=== PATIENT | female | born 1965 | race Caucasian/White ===

== ENCOUNTER 2025-09-01 10:01 | Outpatient (AMB) | payer OTHER, SELFPAY ==
[2025-09-01 10:09] VITALS: BP 130/79; PULSE 79; RESP 16; O2SAT 98; BMI 22.0
--- NOTE | 2025-09-01 10:09 | A.OFFVIS_ITS ---
Vital Signs 09/01/25 10:09 Height 5 ft 5 in Weight 132 lb BMI 22.0 BP 130/79 Blood Pressure Location Rt brachial Position Sitting Respiration 16 Pulse 79 Pulse Source Pulse Oximeter Pulse Oximetry (%) 98 Oxygen Delivery Method Room Air Intake Visit Reasons: Discuss med change Technical Sales Support Manager Required: No Accompanied by: Friend Allergies Penicillins Allergy (Unknown, Verified 09/01/25 10:10) Unknown HPI Comments Details: Abbie is a 60-year-old female patient with a past medical history of chronic back pain, constipation, depression, anxiety, bulimia, hyperlipidemia, and insomnia who is presenting today to reestablish care here at [facility]. I was previously seeing her at [facility] for her headaches. Her headaches have historically been predominantly left-sided to the temporal areas associated with postauricular pain and hearing loss to the left ear. She has associated light and sound sensitivity as well as nausea. Headaches are throbbing and pulsating. She does have a history of TMJ which I have long day spected place her role in tension buildup especially to the left side of her head and face. We initially trialed Botox therapy however she had developed some weakness of the cervical muscles and often to stop treatment. We subsequently trialed occipital nerve block, auricular temporal nerve block, and trigger point injections which did provide some short-term benefit. More recently, we trialed Emgality. Unfortunately she has not had any profound improvement on Emgality. Her last round of occipital nerve blocks and trapezius trigger point injections were performed at [facility] on 08/22/2025 and she did have some short term temporary relief with these measures. She is still taking tizanidine and magnesium regularly however without any benefit. She ended up having a 2nd opinion at [facility] however she feels that this evaluation did not go well and she was referred to [facility] Th[facility]at. She had another Ear Nose and Throat evaluation and they felt that her symptoms were likely related to chronic clenching and TMJ and that Botox would be a reasonable therapy for her. She is still currently experiencing daily headaches with severe pain to the left side of her head especially to the temporal area and associated sensation of left ear fullness and decreased hearing on that side. She continues with light and sound sensitivity as well as nausea. Headaches are relatively consistent though she does have some improvement with tizanidine and magnesium as well as heat compresses. She is interested in starting back up on Botox therapy and would like to stop the Emgality injections for now as she does not see any profound benefit with these. When we performed Botox therapy initially, she only had 1 round of Botox therapy. Unfortunately, with 1 round of Botox therapy it is not at peak benefit and therefore we did not have a clear and fair trial of this. [facility] Medical History (Updated 09/01/25 @ 16:10 by Keyona Galeano CNP) Hypertriglyceridemia MDD (major depressive disorder) Insomnia YUNIEL (generalized anxiety disorder) Depression Low back pain Bruxism Migraine Family History (Updated 09/01/25 @ 10:11 by Ambrose Allred CMA) Father Diabetes mellitus Hypertension Review of Systems Const All systems reviewed & are unremarkable except as noted in HPI and below Physical Exam Vital Signs: Last Vital Signs Pulse 79 09/01/25 10:09 Resp 16 09/01/25 10:09 BP 130/79 09/01/25 10:09 Pulse Ox 98 09/01/25 10:09 Oxygen Delivery Method Room Air 09/01/25 10:09 BMI result Body Mass Index 22.0 Const General: cooperative, healthy appearing, comfortable and no acute distress Nutritional Appearance: well nourished Orientation/consciousness: patient oriented x3 Limitations: no limitations HEENT Head: Yes normal to inspection and Yes normocephalic Eyes General: appearance normal, both eyes and all related structures Visual Galvan: normal visual galvan by confrontation Alignment and Position: alignment normal Periorbital: periorbital findings normal Eyelids: Yes eyelids normal Conjunctivae: conjunctivae normal Sclerae: sclerae normal Neck Neck: Yes normal visual inspection and Yes full ROM General: Yes no CVA tenderness Back/Spine/Pelvis Back: no CVA tenderness Cervical Spine: normal cervical lordosis Thoracic/Lumbar Spine: thoracic and lumbar spine normal to inspection Neuro General: patient oriented x3 and deep tendon reflexes 2+ bilaterally Cranial nerves: Yes CN's II-XII intact bilaterally and Yes Facial sensation intact/muscles of mastication intact Cognition (Neuro): normal cognition Gait exam (Neuro): Normal gait present Motor exam (neuro): 5/5 motor strength present throughout and no tremor noted Sensory Exam: double simultaneous stimulation for sensation normal Romberg Test: Negative Pupils: Normal pupillary reactivity/response: bilateral Psych Appearance: grossly normal Mental Status: mental status grossly normal Speech and movement: Normal speech and movement present and Clear speech present Affect: normal affect Attitude: cooperative Thought process: Normal thought process present Thought content: Normal thought content present Insight: Good insight present (Psych) Judgement: Good judgement present (Psych) Assessment & Plan Assessment & Plan (1) Chronic migraine without aura without status migrainosus, not intractable: Code(s): G43.709 - Chronic migraine without aura, not intractable, without status migrainosus Category: Medical Plan: . (2) TMJ (temporomandibular joint disorder): Code(s): M26.609 - Unspecified temporomandibular joint disorder, unspecified side Category: Medical Plan: . Froilan Leiva is a 60-year-old female patient with a past medical history of chronic back pain, constipation, depression, anxiety, bulimia, hyperlipidemia, and insomnia who [facility]. Since our last visit at [facility], she has seen [facility] Neurology, ear nose and throat, and has stopped her Emgality. Ultimately, after her evaluations and discussion with other providers, she would like to retry Botox therapy. She did not really have a full fair trial on Botox therapy initially as she only did have 1 round. I will discontinue her Emgality and put forth another prior authorization to restart her Botox therapy. She did have some weakness of her cervical muscles and therefore I will likely eliminate Botox in these areas to avoid any further weakness of the neck muscles moving forward. -retrial of Botox therapy per migraine protocol -discontinue Emgality injections -referral to [facility] for TMJ specialist evaluation -return to the clinic once Botox therapy has been approved -continue tizanidine and magnesium as well as heat therapy Coding Level of Care Code Est Pt Level 4 (70725) Diagnoses Chronic migraine without aura without status migrainosus, not intractable G43.709 TMJ (temporomandibular joint disorder) M26.609
--- OUTSIDE RECORDS SUMMARY | 2025-09-01 11:39 | XMS_ITS | Data Portability ---
Author Organization [place] - [facility], Allergy Address [address] [address] Care Team Providers Care Batch Room Technician Name Role Phone RENITA MAGALLON Primary Care Provider CARSON BENITO Referring Provider [phone] CARSON BENITO Referring Provider FRAN OVIEDO Primary Care Provider [phone] Assessment Encounter Date Assessment Date Assessment LastModified by Organization Details LastModified Time 11/15/2024 11/15/2024 59 year old lynnette gonsalez presents for evaluation of her hearing. She reports muffled hearing in the left ear, ear blockage type sensation, tinnitus and ear pain for the past two months. TMs are intact and middle ear spaces appear well aerated. Audiometric testing reveals normal hearing through 3 kHz sloping to a moderate sensorineural hearing loss on the right with excellent speech recognition. On the left she has mild to moderate sensorineural hearing loss with excellent speech recognition. She has type A tympanograms bilaterally. Given the slight asymmetry as well as her unilateral tinnitus I have ordered MRI brain IAC to rule out retrocochlear pathology. Today we discussed the pathophysiology of tinnitus and the absence of consistently successful pharmacologic treatments for tinnitus. We discussed masking strategies to decrease awareness of the tinnitus, including using a white noise machine, music, or television. We discussed how exposure to loud noise can worsen tinnitus so I recommended hearing protection. We also discussed other ways to potentially help reduce awareness of tinnitus including avoidance of caffeine, salty meals and NSAIDs. Patient is extremely frustrated with her current symptoms. I discussed with the patient that I am not entirely sure what is causing her otalgia. TMJ is nontender bilaterally. Given the associated nausea and imbalance it is possible that this is an atypical migraine presentation. I did give her a handout on migraine. We discussed that there are other pain syndromes that can cause otalgia such as trigeminal neuralgia. I do think that she would benefit from referral to neurology if her symptoms persist. [email or web address] Not available 11/15/2024 14:24:46 08/30/2025 08/30/2025 59 year old lynnette gonsalez presents for repeat evaluation of her hearing. She reports muffled hearing in the left ear, ear blockage type sensation, tinnitus and ear pain for the past two months. TMs are intact and middle ear spaces appear well aerated. She did previously have an asymmetry with her hearing, we recommend an MRI which had done previously that was negative. She does have a recent chipped tooth and significant bruxism I do think the primary component of her concerns are significant TMJ muscle tension. I also think her tinnitus may be from a subtle noticing of asymmetry in higher frequency. She is struggling mightily with her tinnitus currently I do think she benefit from hearing amplification trial. - Tinnitus and TMJ recommendations below -Patient will talk with her primary doctor about TMJ specialist referral, she may even benefit from repeat Botox to TMJ area with her neurologist which she will see next week to talk about. - Return visit with me as needed [email or web address] Not available 08/30/2025 10:31:02 Plan of Treatment Reminders Order Date Submit Date Provider Last Modified By Organization Details Last Modified Time Details Appointments None recorded. Lab None recorded. Referral None recorded. Procedures None recorded. Surgeries None recorded. Imaging MRI, brain + internal auditory canal, w/wo contrast - MRI, BRAIN + INTERNAL AUDITORY CANAL, W/WO CONTRAST 2023 024 [facility] ([facility]), [address] [facility], [place], [address], 13:42:23 Medication Orders None recorded. Patient TargetsNo targets recorded. Patient InstructionsNo instructions recorded. Reason for Referral None Reported. Results Created Date Observation Date Name Description Value Unit Range Abnormal Flag Note LastModifiedBy Organization Detail LastModifiedTime 11/17/19 25 audio gram No observ ation record ed. BARCODE Not Available 2024 09:29:31 08/30/20 25 audio gram No observ ation record ed. BARCODE Not Available 2024 15:08:23 Result Notes None recorded. Problems Name Problem SNOMED Code Status Onset Date Resolution Date Notes Provider Name and Address Organization Details Recorded Time Sensorineur al hearing loss of bilateral ears 355816219 Active 2023 CECE NETTLES , AUD [address] [facility] [address], [place], [address], [facility] - [facility] 09:29:45 Tinnitus of left ear 6206481084429 Active 2023 Dane Ross, DO [address] [facility] [address], [place], [address], [facility] 10:30:26 Otalgia of left ear 8757381205 Active 2023 Dane Ross, DO [address] [facility] [address], [place], [address], [facility] 08:47:18 Temporomand ibular joint-pain- dysfunction syndrome 463939894 Active 2024 Dane Ross, DO [address] [facility] [address] [facility], [place], [address], [facility] 10:30:31 Problem Notes None recorded. Procedures Surgical History Date Name Laterality Status Provider Name and Address Organization Details Recorded Time 08/30/2025 Air & Speech Audio with Tymps - 83166, 26057 & 49424 completed CECE NETTLES, AUD [address] [facility],[address], [address], [facility] 08/30/2025 09:29:03 11/15/2024 Comp Audio with Tymps - 20339 & 34382 completed MONIQUE ZAVALA, AUD [address] [facility],[address], [address], [facility] 11/15/2024 13:11:01 Imaging Results None recorded. Procedure Notes None recorded. Medical Equipment None Reported. Allergies No known drug allergies Medications Name Sig Start Date Stop Date Status Note LastModified by Organization Details LastModified Time quetiapine 25 mg tablet TAKE 1 TABLET BY MOUTH EVERYDAY AT BEDTIME 08/30 completed Not Available Not Available Not Available clonidine HCl 0.1 mg tablet TAKE 1 TABLET BY MOUTH EVERYDAY AT BEDTIME 08/30 completed Not Available Not Available Not Available doxycycline hyclate 100 mg capsule TAKE 1 CAPSULE BY MOUTH TWICE A DAY FOR 10 DAYS 08/30 completed Not Available Not Available Not Available azithromyci n 250 mg tablet TAKE 2 TABLETS BY MOUTH TODAY, THEN TAKE 1 TABLET DAILY FOR 4 DAYS DIRECTED 08/27 completed Not Available Not Available Not Available tizanidine 4 mg tablet TAKE 1-2 TABLETS EVERY 8 HOURS NEEDED FOR HEADACHE/ TENSION active Not Available Not Available No t Available methylpheni date 5 mg tablet TAKE 1 TABLET BY MOUTH EVERY DAY 08/30 completed Not Available Not Available Not Available dextroamphe tamine-amph etamine 10 mg tablet TAKE 2 TABLETS BY MOUTH EVERY DAY 08/30 completed Not Available Not Available Not Available rizatriptan 10 mg tablet PLEASE SEE ATTACHED FOR DETAILED DIRECTION S 08/30 completed Not Available Not Available Not Available sumatriptan 50 mg tablet PLEASE SEE ATTACHED FOR DETAILED DIRECTION S 08/30 completed Not Available Not Available Not Available clonidine HCl 0.2 mg tablet TAKE 2 TABLETS BY MOUTH EVERY NIGHT AT BEDTIME 08/30 completed Not Available Not Available Not Available doxycycline monohydrate 100 mg capsule TAKE 1 CAPSULE BY MOUTH TWICE A DAY FOR 10 DAYS 08/27 completed Not Available Not Available Not Available prednisone 50 mg tablet TAKE 1 TABLET BY MOUTH EVERY DAY FOR 5 DAYS 08/30 completed Not Available Not Available Not Available gabapentin 300 mg capsule TAKE 1 CAPSULE BY MOUTH THREE TIMES A DAY WITH 100MG, FOR TOTAL DAILY DOSE OF 400MG 3 TIMES DAILY 08/30 completed Not Available Not Available Not Available codeine 10 mg-guaifene sin 100 mg/5 mL oral liquid TAKE 5 ML BY MOUTH EVERY 6 HOURS,X6 DAYS, NEEDED FOR COUGH AND CONGESTIO N 08/30 completed Not Available Not Available Not Available gabapentin 100 mg capsule TAKE 3 CAPSULE BY MOUTH 3 TIMES A DAY 08/30 completed Not Available Not Available Not Available albuterol sulfate HFA 90 mcg/actuati on aerosol inhaler 1 PUFFS INHALATIO N 4 TIMES A DAY, NEEDED FOR WHEEZING 08/30 completed Not Available Not Available Not Available dextroamphe tamine-amph etamine 5 mg tablet TAKE 1 TABLET BY MOUTH EVERY DAY 08/30 completed Not Available Not Available Not Available methylpheni date LA 20 mg biphasic 50-50 capsule,ext ended release TAKE 1 CAPSULE BY MOUTH EVERY DAY 08/30 completed Not Available Not Available Not Available methylpheni date LA 10 mg biphasic 50-50 capsule,ext ended release TAKE 1 CAPSULE BY MOUTH EVERY DAY 08/30 completed Not Available Not Available Not Available duloxetine 20 mg capsule,del ayed release TAKE 2 CAPSULES BY MOUTH EVERY DAY IN THE MORNING 08/30 completed Not Available Not Available Not Available duloxetine 30 mg capsule,del ayed release PLEASE SEE ATTACHED FOR DETAILED DIRECTION S 08/30 completed Not Available Not Available Not Available quetiapine 50 mg tablet TAKE 1.5 TABLET BY MOUTH EVERY NIGHT AT BEDTIME 08/30 completed Not Available Not Available Not Available Emgality Pen 120 mg/mL subcutaneou s pen injector 120 MG SUBCUTANE OUS INJECTION EVERY 30 DAYS,MAIN TENANCE DOSE active Not Available Not Available No t Available Vitals Date Recorded Body height Body mass index (BMI) Body weight Systolic And Diastolic Provider Name and Address Organization Details Last Updated DateTime 08/30/2025 165.1 cm 22 kg/m2 63837.19 g 120/82 mm[Hg] Gaby Suárez [place] - [facility] 08/30/2025 09:54:08 Social History None recorded. Functional Status None recorded. Mental Status None recorded. Family History Nothing Reported. Medical History No medical history recorded. Gynecological HistoryNo gynecological history recorded. Obstetrics History GPAL:G 0 P 0 0 0 0 Past Encounters Encounter ID Performer Location Encounter Start Date Encounter Closed Date Diagnosis/Indication Diagnosis SNOMED-CT Code Diagnosis ICD10 Code Diagnosis IMO Codes Diagnosis Note [id number] MERRILL MCCALL PA-C [facility] [address] [address] 11/15/2024 12:36:33 11/15/2024 13:49:24 Sensorineural hearing loss of bilateral ears 910477770 H90.3 Tinnitus of left ear 193 6372388 106 H93.12 Right Ear:Normal hearing through 3K Hz sloping to a moderate SNHL with excellent speech discrimina tion.Type A tympanogra m.Left Ear:Mild to moderate SNHL with excellent speech discrimina tion.Type A tympanogra m. Otalgia of left ear 1010 534481 H92.02 [id number] Dane Ross DO [facility] [address] [address] 08/30/2025 08:51:56 08/30/2025 10:28:54 Sensorineural hearing loss of bilateral ears 886026604 H90.3 Audiologic al evaluation results: Right ear: Normal sloping to moderately severe sensorineu ral hearing loss with excellent word recognitio n. Left ear: Normal sloping to severe sensorineu ral hearing loss with excellent word recognitio n. Tympanomet ry: Right Ear:Type A Left Ear:Type A Tinnitus of left ear 934 8796495 106 H93.12 Right Ear:Normal hearing through 3K Hz sloping to a moderate SNHL with excellent speech discrimina tion.Type A tympanogra m.Left Ear:Mild to moderate SNHL with excellent speech discrimina tion.Type A tympanogra m. We had an extensive discussion today on tinnitus and potential etiologies . I mentioned that there is no cure for tinnitus but there are ways to curtail symptoms. We discussed that the treatment paradigm includes continued hearing protection , lifestyle modificati ons including increasing hydration, avoidance of excessive salt or caffeine, improving sleep, and avoidance of potential patient specific triggers . I discussed that OTC medication s are unlikely to improve symptoms outside of placebo effect. Masking techniques with background noises can decrease perception of non-pulsat ile tinnitus. I also discussed the role of biofeedbac k, sound retraining , cognitive behavioral therapy as a potential treatment option to try to improve control over tinnitus. We also discussed the role of hearing amplificat ion, which have the means to provide background noise to curtail symptoms as well. The patient would like to pursue hearing amplificat ion at this time, I will provide medical clearance for this Otalgia of left ear 1010 883069 H92.02 Temporoman dibular ixuli-mjcx-oliguewtej n syndrome 460473298 M26.629 7913 The patient's periauricu lar pressure sensation is most likely consistent with intermitte nt inflammati on of the jaw joint or spasm of the surroundin g musculatur e. I recommende d the patient use light massage, warm compresses and anti-infla mmatories for symptomati c management . Stressed avoidance of chewy foods and gum/hard sweets. Use soft food diet as needed. Jaw Joint Program informatio n sheet was shared. If this treatment plan is ineffectiv e, recommend follow up with their dentist. Referral to physical therapist who specialize s in TMJ disorders could also be considered . Health Concerns Section Related Observation LastModified by Organization Detai ls LastModified Time None Recorded Concern Status LastModified by Organization Details LastModified Time None Recorded Advance Directives Directive None Recorded Payers Insurance Date Sequence Insurance Name Policy Number Policy Bruner Covered Member ID Bruner Member ID Guarantor Name 08/27/2025 1 [facility] [place] [id number] Abbie Clayton [id number] Abbie Clayton Notes Date Note Type Note Provider Name and Address Organization Details Recorded Time 11/15/2024 text/html ROS as noted in the HPI 59 year old female presents to the office reporting left ear muffled hearing, pain, plugged sensation and constant ringing. This all started at the end of August when she had a mild cold. The tinnitus is constant. She tried Flonase for one month with no improvement. Her PCP prescribed oral antibiotic with no improvement. She admits to some nausea and associated imbalance. DANE VORA MD [address] [place] [address], [phone], [facility] - [facility] 11/15/2024 17:28:49 08/30/2025 text/html ROS as noted in the HPI Interval history: Patient still has consistent left-sided nonpulsatile tinnitus. She has had multiple MRIs per her remember negative. She also endorses significant bruxism, recently broken front tooth, and use of mouthguard. She has had Botox for migraines but not specifically TMJ per her. She is also taking antimigraine medication currently. Previous visit: (Merrill) 59 year old female presents to the office reporting left ear muffled hearing, pain, plugged sensation and constant ringing. This all started at the end of August 2024 when she had a mild cold. The tinnitus is constant. She tried Flonase for one month with no improvement. Her PCP prescribed oral antibiotic with no improvement. She admits to some nausea and associated imbalance. Audiometric testing reveals normal hearing through 3 kHz sloping to a moderate sensorineural hearing loss on the right with excellent speech recognition. On the left she has mild to moderate sensorineural hearing loss with excellent speech recognition. She has type A tympanograms bilaterally. Given the slight asymmetry as well as her unilateral tinnitus I have ordered MRI brain IAC to rule out retrocochlear pathology. There was some concern at last visit this could be a form of atypical migraine. Dane Ross, DO [address] [facility] [address], [place], [address], [facility] - [facility] 08/30/2025 10:31:11 OBGyn Episode No OBEpisode recorded.
--- OUTSIDE RECORDS SUMMARY | 2025-09-01 11:39 | XMS_ITS | Clinical Summary ---
Author Organization [facility] Address [address] [place] [address] Care Team Providers Care Knock Out Hand Name Role Phone Ashleigh Fajardo MD Primary Care Provider [phone] Allergies Active Allergy Reactions Criticality Noted Date Comments Penicillins Hives 07/06/2025 Medications fluvoxaMINE (LUVOX) 50 mg tablet 5 Active Emgality Pen 120 mg/mL pen injector SMARTSI Milligram(s) SUB-Q Once a Month 5 Active QUEtiapine (SEROquel) 50 mg tablet 50 mg. 5 Active SUMAtriptan (IMITREX) 50 mg tablet PLEASE SEE ATTACHED FOR DETAILED DIRECTIONS 5 Active methylphenidate LA (RITALIN LA) 20 mg 24 hr capsule SMARTSI Capsule(s) By Mouth Daily 5 Active gabapentin (NEURONTIN) 400 mg capsule Take 400 mg by mouth 3 times a day. Active Active Problems Problem Noted Date Diagnosed Date Chronic daily headache 07/06/2025 Hearing loss associated with syndrome of both ea rs 07/06/2025 Migraine without aura and wi thout status migrainosus, not intractable 07/06/2025 Occipital neuralgia of left side 07/06/2025 Anxiety Disorder NOS 11/12/2012 Encounters Date Type Department Care Team Description 07/24/2025 Results Follow-Up [facility] [address] [place] [address] Makayla York NP 07/21/2025 Orders Only External Imaging [address] [place] [address] Radiology, External 07/06/2025 11:00 AM EDT Office Visit [facility] [address] [place] [address] Makayla York NP Chronic daily headache (Primary Dx); Hearing loss associated with syndrome of both ears; Migraine without aura and without status migrainosus, not intractable; Occipital neuralgia of left side from Last 3 Months Social History Tobacco Use Types Packs/Day Years Used Date Smoking Tobacco: Never Smokeless Tobacco: Never Tobacco Cessation:Counseling Given: Not Answered Alcohol Use Standard Drinks/Week Comments Never 0 (1 standard drink = 0.6 oz pur e alcohol) Comments Unknown Sex and Gender Information Value Date Recorded Sex Assigned at Female 04/24/2025 10:02 AM EDT Legal Sex Female 8:38 AM EDT Gender Identity Female 06/29/2025 9:21 AM EDT Sexual Orientation Straight 06/29/2025 9: 21 AM EDT Last Filed Vital Signs Vital Sign Reading Time Taken Comments Blood Pressure 111/70 07/06/2025 10:37 AM EDT Pulse 77 07/06/2025 10:37 AM EDT Temperature 36.6 C (97.8 F) 07/06/2025 10:25 AM EDT Respiratory Rate 18 07/06/2025 10:25 AM EDT Oxygen Saturation 100% 07/06/2025 10:25 AM EDT Inhaled Oxygen Concentration - - Weight 62.1 kg (137 lb) 07/06/2025 10:25 AM EDT Height 165.1 cm (5' 5 ) 07/06/2025 10:25 AM EDT Body Mass Index 22.8 07/06/2025 10:25 AM EDT Plan of Treatment Health Maintenance Due Date Last Done Comments Cologuard 1965 Colon Cancer Screening 1965 Colonoscopy 1965 FOBT / Fit Test 1965 HIV Screening 1965 HPV and Pap Smear 1965 Hepatitis C Screening 1965 Sigmoidoscopy 1965 Cervical Cancer Screening 06/16/2014 Pap Smear 06/16/2014 06/16/2011, 08/30/2009, 08/25/2008 Pneumococcal Vaccine: 50+ Years (1 of 1 - PCV) 2015 Zoster Vaccines (1 of 2) 2015 Mammogram 09/06/2015 09/06/2013 Alcohol/Substance Use Screening 11/16/2024 Depression Screening and Follow-Up 11/16/2024 Social Drivers of Health Annual Screening 11/16/2024 COVID-19 Vaccine (4 - 2024-2 6 season) 2025 09/29/2021, 03/27/2021, 02/26/2021 Influenza Vaccine (#1) 2025 , 09/10/2018 DTaP,Tdap,and Td Vaccines (2 - Td or Tdap) 10/13/2028 10/13/2018 RSV Vaccine (60+ years old a nd patients) (1 - 1-dose 75+ series) 02/07/2040 Hepatitis B Vaccines Aged Out No long er eligible based on patient's age to complete this topic Procedures * Due to [employer] law, this organization might not be sharing negative HIV tests. Procedure Name Priority Date/Time Associated Diagnosis Comments MRI ANGIOGRAM HEAD WO CONTRAST Routine 07/21/2025 2:50 PM EDT Chronic daily headache from Last 3 Months Results * Due to [employer] law, this organization might not be sharing negative HIV tests. * MRI angiogram head without contrast (07/21/2025 2:50 PM EDT) Anatomical Region Laterality Modality Head and Neck Magnetic Resonan ce 07/21/2025 2:30 PM EDT Narrative 07/21/2025 9:28 PM EDT [facility] at [facility], [facility] Accession Number: [id number] Patient Name: Abbie Clayton Date of : 1965 Date of Exam: 07-21-2025 Referring Physician: Makayla York [address] [address] Exam: MR Brain Angio (C-) CPT 99141 Room Description: Wing GE Mob 1.5 MRA of the brain HISTORY: Headaches and left earache. COMPARISON: MRI of the brain, 11/22/2024. FINDINGS: Axial noncontrast 3-D [id number]-md-cxkywn MR angiogram of the brain was performed with 3-D MIP reformatted images. The ICAs below the skull base are tortuous. The intracranial ICAs are patent and normal in caliber. The anterior cerebral arteries are patent and normal in caliber with a small patent anterior communicating artery noted. Bilateral M1 and M2 branches are patent and normal in caliber. The vertebral arteries, basilar artery, superior cerebellar arteries, and posterior cerebral arteries are patent and normal in caliber. Tiny bilateral posterior communicating arteries are seen. There is no vessel occlusion, significant stenosis, or evidence of aneurysm. IMPRESSION: Normal MRA of the brain. Electronically Signed By: Ade Gusman MD Procedure Note Provider, Ligia - 07/21/2025 [facility] Accession Number: [id number] Patient Name: Abbie Clayton Date of : 1965 Date of Exam: 07-21-2025 Referring Physician: Wyatt Dickey [place] [address] Exam: MR Brain Angio (C-) CPT 43756 Room Description: [place] TapFit Mob 1.5 MRA of the brain HISTORY: Headaches and left earache. COMPARISON: MRI of the brain, 11/22/2024. FINDINGS: Axial noncontrast 3-D qfxi-zn-wadvcf MR angiogram of the brain was performed with 3-D MIP reformatted images. The ICAs below the skull base are tortuous. The intracranial ICAs are patent and normal in caliber. The anterior cerebral arteries are patent and normal in caliber with a small patent anterior communicating artery noted. Bilateral M1 and M2 branches are patent and normal in caliber. The vertebral arteries, basilar artery, superior cerebellar arteries, and posterior cerebral arteries are patent and normal in caliber. Tiny bilateral posterior communicating arteries are seen. There is no vessel occlusion, significant stenosis, or evidence of aneurysm. IMPRESSION: Normal MRA of the brain. Electronically Signed By: Ade Gusman MD us Elisedavi Wyatt Dickey PAY AGENT IMG MRI PROCEDURES Shannon l Result from Last [address] [place] [facility] [place] [id number] [facility] Care Teams Knock Out Hand Relationship Specialty Start Date End Date Ashleigh Fajardo MD [address] [place] [id number] PCP - General Internal Medicine 04/24/25
--- OUTSIDE RECORDS SUMMARY | 2025-09-01 11:39 | XMS_ITS | Continuity of Care Document ---
Author Organization [place] - [facility], [facility] Address [address] [place] [address] Care Team Providers Care Greenhouse Specialist Name Role Phone RENITA MAGALLON Primary Care Provider CARSON BENITO Referring Provider CARSON BENITO Referring Provider [phone] FARN OVIEDO Primary Care Provider [phone] Assessment Encounter Date Assessment Date Assessment LastModified by Organization Details LastModified Time 08/30/2025 08/30/2025 59 year old lynnette gonsalez [...] Details Last Modified Time Details Appointments None record ed. Lab None record ed. Referral None record ed. Procedures None record ed. Surgeries None record ed. Imaging None record ed. Medication Orders None record ed. Patient TargetsNo targets recorded. Patient InstructionsNo instructions recorded. Reason for Referral None Reported. Results Created Date Observation Date Name Description Value Unit Range Abnormal Flag Note LastModifiedBy Organization Detail LastModifiedTime 08/30/20 25 audio gram No observ ation record ed. BARCODE Not Available 2024 15:08:23 Result Notes None recorded. Problems Name Problem SNOMED Code Status Onset Date Resolution Date Notes Provider Name and Address Organization Details Recorded Time Sensorineur al hearing loss of bilateral ears 961368595 Active 2023 CECE NETTLES , AUD [address] [facility] [address] [place], [address], [facility] - [facility] 09:29:45 Tinnitus of left ear 6762442476742 Active 2023 Dane Ross, DO [address] [facility] [place],[address] [facility], [place], [address], [facility] 10:30:26 Otalgia of left ear 7231245806 Active 2023 Dane Ross, DO [address] [facility] [address] [facility], [place], [address], [facility] 08:47:18 Temporomand ibular joint-pain- dysfunction syndrome 482907464 Active 2024 Dane Ross DO [address] [facility] [place],[address] [facility], [place], [address], [facility] 10:30:31 Problem Notes None recorded. Procedures Surgical History Date Name Laterality Status Provider Name and Address Organization Details Recorded Time 08/30/2025 Air & Speech Audio with Tymps - 96584, 74571 & 20562 completed CECE NETTLES, AUD [address], [address], [facility] - [facility] 08/30/2025 09:29:03 11/15/2024 Comp Audio with Tymps - 82875 & 96667 completed MONIQUE ZAVALA, AUD [address] [facility] [place] [address], [place], [address], [facility] 11/15/2024 13:11:01 Imaging Results None recorded. [...] Updated DateTime 08/30/2025 165.1 cm 22 kg/m2 97323.19 g 120/82 mm[Hg] Gaby Suárez [place] - [facility] 08/30/2025 09:54:08 Social History None recorded. Functional Status None recorded. Mental Status None recorded. Family History Nothing Reported. Medical History No medical history recorded. Gynecological HistoryNo gynecological history recorded. Obstetrics History GPAL:G 0 P 0 0 0 0 Past Encounters Encounter ID Performer Location Encounter Start Date Encounter Closed Date Diagnosis/Indication Diagnosis SNOMED-CT Code Diagnosis ICD10 Code Diagnosis IMO Codes Diagnosis Note [id number] Dane Ross DO [facility] [address] [place] [address] 08/30/2025 08:51:56 08/30/2025 10:28:54 Sensorineural hearing loss of bilateral ears 476486314 H90.3 Audiologic al evaluation results: Right ear: Normal sloping to moderately severe sensorineu ral hearing loss with excellent word recognitio n. Left ear: Normal sloping to severe sensorineu ral hearing loss with excellent word recognitio n. Tympanomet ry: Right Ear:Type A Left Ear:Type A Tinnitus of left ear 958 0434233 106 H93.12 Right Ear:Normal hearing through 3K [...] for this Otalgia of left ear 1010 661939 H92.02 Temporoman dibular kdyrj-frwi-oanqfoeund n syndrome 062821751 M26.749 7912 The patient's periauricu lar pressure sensation is [...] by Organization Details LastModified Time None Recorded Payers Encounter Date Sequence Insurance Name Policy Number Policy Bruner Covered Member ID Bruner Member ID Guarantor Name 08/30/2025 1 [employer] [place] [place] [id number] Abbie Vargas Forrest [id number] Abbie Vargas Forrest Notes Date Note Type Note Provider Name and Address Organization Details Recorded Time 08/30/2025 text/html ROS as noted in the HPI Interval history: Patient still has consistent left-sided nonpulsatile tinnitus. She has had multiple MRIs per her remember negative. She also endorses significant bruxism, recently broken front tooth, and use of mouthguard. She has had Botox for migraines but not specifically TMJ per her. She is also taking antimigraine medication currently. Previous visit: (Bailee) 59 year old female presents to the [...] a form of atypical migraine. Dane Ross, [address] [facility] [place] [address], [place], [address], [facility] - [facility] 08/30/2025 10:31:11 OBGyn Episode No OBEpisode recorded.
== END 2025-09-01 10:50 | disposition home or self-care (01) ==
LOC: HO.HSM 10:02
PROVIDERS: PCP Internal Medicine; Visit Provider Nurse Practitioner
DX: G43.709 Chronic migraine without aura, not intractable, without status migrainosus (principal); M26.609 Unspecified temporomandibular joint disorder, unspecified side
CPT/HCPCS: 99214

== ENCOUNTER 2025-09-29 13:56 | Outpatient (REF) | payer OTHER, SELFPAY ==
--- NOTE | ~2025-09-29 | XR_ITS ---
EXAMINATION: XR CERVICAL SPINE CLINICAL INFORMATION: M54.2 - Cervicalgia COMPARISON: None available. TECHNIQUE: AP lateral and atlantoodontoid views and swimmer's projection. FINDINGS: Craniocervical junction is intact. Marginal osteophyte formation anteriorly and posteriorly with endplate sclerosis and decreased intervertebral disc height at C4-5. Grade 1 retrolisthesis, C4-5. No lytic or blastic lesions. XR/XR cervical spine 3V IMPRESSION: Spondylosis and grade 1 retrolisthesis C4-5. Electronically signed by: Jaren Snow MD 09/29/2025 03:15 PM [facility]
== END 2025-09-29 13:57 | disposition home or self-care (01) ==
LOC: HO.XRAY 13:56
PROVIDERS: PCP Internal Medicine; Visit Provider Nurse Practitioner
DX: G43.709 Chronic migraine without aura, not intractable, without status migrainosus (principal); M26.602 Left temporomandibular joint disorder, unspecified; M54.2 Cervicalgia; F45.8 Other somatoform disorders
CPT/HCPCS: 20553; 64405; 72040; J0665

== ENCOUNTER 2025-09-29 13:56 | Outpatient (AMB) | payer OTHER, SELFPAY ==
--- NOTE | 2025-09-29 13:56 | MHC.OFFVIS ---
Vital Signs 09/29/25 14:15 Height 5 ft 5 in Weight 134 lb BMI 22.3 BP 124/84 Blood Pressure Location Lt brachial Position Sitting Respiration 16 Pulse 80 Pulse Source Pulse Oximeter Pulse Oximetry (%) 98 Oxygen Delivery Method Room Air Intake Visit Reasons: Nerve block Tool Rental Technician Required: No Allergies Penicillins Allergy (Unknown, Verified 09/29/25 14:16) Unknown HPI Comments Details: Abbie is a 60-year-old female patient with a past medical history of chronic back pain, constipation, depression, anxiety, bulimia, hyperlipidemia, and insomnia who is presenting today for nerve block and trigger points. We are currently in the process of obtaining a prior authorization for Botox therapy though due to some technical issues with the process, there has been a slight hold up and therefore she requested to come in for other means of pain management. To review: Her headaches have historically been predominantly left-sided to the temporal areas associated with postauricular pain and hearing loss to the left ear. She has associated light and sound sensitivity as well as nausea. Headaches are throbbing and pulsating. She does have a history of TMJ which I have long suspected place her role in tension buildup especially to the left side of her head and face. We initially trialed Botox therapy however she had developed some weakness of the cervical muscles and opted to stop treatment. We subsequently trailed occipital nerve blocks, left auriculotemporal nerve block, and trigger point injections which did provide some short-term benefit. We also trialed Emgality. Unfortunately she has not had any profound improvement on Emgality. She is still currently experiencing daily migraine type headaches with severe pain to the left side of her head especially to the temporal area and associated sensation of left ear fullness and decreased hearing on that side. She continues with light and sound sensitivity as well as nausea. Headaches are relatively consistent though she does have some improvement with tizanidine and magnesium as well as heat compresses. Today she continues with the same symptoms. She asks about other means of therapy while we await the Botox PA. We discussed transitioning from tizanidine to cyclobenzaprine and we did complete the occipital nerve blocks, left auricular temporal nerve block, and left temporal trigger point injections today as well. [facility] Medical History (Updated 09/29/25 @ 14:37 by Keyona Galeano CNP) Hypertriglyceridemia MDD (major depressive disorder) Insomnia YUNIEL (generalized anxiety disorder) Depression Low back pain Bruxism Migraine Family History (Updated 09/01/25 @ 10:11 by Ambrose Allred CMA) Father Diabetes mellitus Hypertension Review of Systems Const All systems reviewed & are unremarkable except as noted in HPI and below Physical Exam Vital Signs: Last Vital Signs Pulse 80 09/29/25 14:15 Resp 16 09/29/25 14:15 BP 124/84 09/29/25 14:15 Pulse Ox 98 09/29/25 14:15 Oxygen Delivery Method Room Air 09/29/25 14:15 BMI result Body Mass Index 22.3 Const General: cooperative, healthy appearing, comfortable and no acute distress Nutritional Appearance: well nourished Orientation/consciousness: patient oriented x3 Limitations: no limitations HEENT Head: Yes normal to inspection and Yes normocephalic Eyes General: appearance normal, both eyes and all related structures Visual Ferrell: normal visual ferrell by confrontation Alignment and Position: alignment normal Periorbital: periorbital findings normal Eyelids: Yes eyelids normal Conjunctivae: conjunctivae normal Sclerae: sclerae normal Neck Neck: Yes normal visual inspection and Yes full ROM General: Yes no CVA tenderness Back/Spine/Pelvis Back: no CVA tenderness Cervical Spine: normal cervical lordosis Thoracic/Lumbar Spine: thoracic and lumbar spine normal to inspection Neuro General: patient oriented x3 and deep tendon reflexes 2+ bilaterally Cranial nerves: Yes CN's II-XII intact bilaterally and Yes Facial sensation intact/muscles of mastication intact Cognition (Neuro): normal cognition Gait exam (Neuro): Normal gait present Motor exam (neuro): 5/5 motor strength present throughout and no tremor noted Sensory Exam: double simultaneous stimulation for sensation normal Romberg Test: Negative Pupils: Normal pupillary reactivity/response: bilateral Psych Appearance: grossly normal Mental Status: mental status grossly normal Speech and movement: Normal speech and movement present and Clear speech present Affect: normal affect Attitude: cooperative Thought process: Normal thought process present Thought content: Normal thought content present Insight: Good insight present (Psych) Judgement: Good judgement present (Psych) Office Procedures Nerve Block Details: Bilateral Greater Occipital Nerve block procedure: Laterally: Bilateral Indications: Occipital neuralgia Current allergies and current list of medications were reviewed prior to procedure, verbal consent was obtained, procedure was explained in detail to the patient prior to starting. Time-out was performed prior to procedure. Following universal hygiene protocols, patient's left occipital area was located by drawing a line between the external occipital protuberance and the mastoid process. The greater occipital nerve was located approximately 2/3 along this service line coordinator to the occiput, and corresponded with the point of maximum tenderness. Alcohol was applied topically to the skin. A 27 gauge needle (aspirating during insertion) was inserted at a 45 degree angle until just above the periosteum. The providers selected agent (s)/medications (as documented in this note) were injected on the left side (directing needle to center, left and right of painful focus any fanning technique). Pressure with gauze pad was held briefly upon the site of puncture to minimize bleeding and to further spread anesthetic subcutaneously. The procedure was repeated on the right side. The patient was monitored for 15 minutes after the procedure and no complications were observed. Post procedure care was reviewed with the patient including application of ice intermittently to the injection sites over the course of the day to reduce inflammation. Auriculotemporal Nerve Block Procedure: Laterally:Left Indications:Headache/bruxism/TMJ dysfunction Allergies to medications reviewed with patient prior to procedure, consent was obtained, procedure was explained in detail to the patient prior to starting, time-out was performed prior to the procedure. Following universal hygiene protocol, patient's left auricular temporal area was located by drawing a line between the corner of the eye to the tragus. The site was located 1 fingerbreadth toward the midline. This corresponded to the point of maximum tenderness. Alcohol was applied to this area topically to the skin. A 30 gauge 0.5 inch needle was injected into the skin (aspirating during insertion). This was inserted at a 90 degree angle. The medication chosen by the provider and as documented in this office note was injected to this site. Pressure with gauze was applied to the site briefly after the puncture to minimize bleeding and to further spread the anesthetic subcutaneously. Patient tolerated the procedure well and was monitored postprocedure for 15 minutes. No complications occurred during or after the procedure. The patient was discharged home with instructions to apply ice to the injection site as needed throughout the remainder of the day. CPT: 50755-Qgcagqv Occipital 49037 - Auriculotemporal Left Procedure code (CPT) selection complete Therapeutic Injection Therapeutic Injection Details: Trigger point injection procedure: Laterally:Left Indications: Chronic headaches, myofascial pain Following universal hygiene protocol, after explaining the risks and benefits as well as hazards of the procedure to the patient, consent was signed and placed in the chart. Time-out prior to starting the procedure was performed. The areas over the left temporalis muscle were cleansed with alcohol. 4 Sites in the left temporalis muscle injected with a 27 gauge 1.5 in needle with myofascial spasm. Patient tolerated the procedure well, localized bleeding was controlled. Patient monitored in the clinic for 15 minutes for complications. Patient was discharged home with instructions to apply ice to the back of their head as needed. 98268-Ecebdpy Point Injection 3 or more All charges added?: Procedure code (CPT) selection complete Office Meds bupivacaine (PF) 0.5 % (5 mg/mL) injection solution Performing Provider: Keyoan Galeano CNP Performing Location: [facility] Administered by: Keyona Galeano CNP on 09/30/25 06:50 Dose Route Admin Location Dispensed Lot Number Expiration Date [facility] Contour Path Tape Mill Operator 7 mL Infiltration 10 mL 74618-144-07 [employer]ARMACE Total Dispensed Waste 10 mL 30 % bupivacaine (PF) 0.5 % (5 mg/mL) injection solution Performing Provider: Keyona Galeano CNP Performing Location: [facility] Administered by: Keyona Galeano CNP on 09/30/25 06:52 Dose Route Admin Location Dispensed Lot Number Expiration Date [facility] Contour Path Tape Mill Operator 1 mL Infiltration 10 mL [id number] [employer]ELLIA PHARMACE Total Dispensed Waste 10 mL 90 % Assessment & Plan Assessment & Plan (1) Neck pain: Code(s): M54.2 - Cervicalgia Category: Medical (2) Bruxism: Code(s): F45.8 - Other somatoform disorders Category: Medical (3) Chronic migraine without aura without status migrainosus, not intractable: Code(s): G43.709 - Chronic migraine without aura, not intractable, without status migrainosus Category: Medical (4) TMJ (temporomandibular joint disorder): Code(s): M26.609 - Unspecified temporomandibular joint disorder, unspecified side Category: Medical Plan Abbie is a 60-year-old female patient with a past medical history of chronic back pain, constipation, depression, anxiety, bulimia, hyperlipidemia, and insomnia who is presenting today for nerve block and trigger points. We are still awaiting Botox prior authorization however to our knowledge, her old prior authorization through [facility] expires on Thursday10/01/2025 and we will need to await prior authorization process here until this is . Once again to review, headaches are daily primarily to left side accompanied by light and sound sensitivity as well as nausea and are very severe. She did 1 round of Botox therapy but unfortunately developed some weakness in the cervical paraspinal muscles and opted to stop. One round of Botox therapy is not adequate for a true trial. She is open to another trial of Botox therapy today though we discussed omission of the cervical paraspinal injections to avoid this complication moving forward. Because she is complaining of neck pain, she requests imaging of her cervical spine. She has never had any imaging in the past. -Occipital nerve block injections (bilateral), and left sided auriculotemporal nerve block as well as left temporal trigger point injectios -Botox PA -Cyclobenzaprine 5mg nightly -c-spine x-ray Orders: Orders XR cervical spine 3V 09/29/25 M54.2 - Cervicalgia AMB Nerve Block 09/29/25 F45.8 - Other somatoform disorders, G43.709 - Chronic migraine without aura, not intractable, without status migrainosus, M26.609 - Unspecified temporomandibular joint disorder, unspecified side, M54.2 - Cervicalgia AMB Trigger Point Injection 09/29/25 F45.8 - Other somatoform disorders, G43.709 - Chronic migraine without aura, not intractable, without status migrainosus, M26.609 - Unspecified temporomandibular joint disorder, unspecified side, M54.2 - Cervicalgia Medications: New cyclobenzaprine Do not take with tizanidine 5 mg PO BEDTIME PRN 30 tabs 5RF muscle spasm Coding Level of Care Code Est Pt Level 4 (66736) Diagnoses Neck pain M54.2 Bruxism F45.8 Chronic migraine without aura without status migrainosus, not intractable G43.709 TMJ (temporomandibular joint disorder) M26.609 CPT Codes Nerve Block - CPT: 58762-Rwuyzif Occipital ([id number]) Therapeutic Injection - Ther Injection 2: 25267-Qvqdoir Point Injection 3 or more ([id number])
[2025-09-29 14:15] VITALS: BP 124/84; PULSE 80; RESP 16; O2SAT 98; BMI 22.3
--- OUTSIDE RECORDS SUMMARY | 2025-09-29 20:33 | XMS_ITS | Clinical Summary ---
Author Organization [facility] Address [address] [place] [address] Care Team Providers Care Policy Writer Sales Name Role Phone Ashleigh Fajardo MD Primary Care Provider [phone] Allergies Active Allergy Reactions Criticality Noted Date [...] Department Care Team Description 07/24/2025 Results Follow-Up [facility] [address] [place] [address] Makayla York NP 07/21/2025 Orders Only External Imaging [address] [place] [address] Radiology, External 07/06/2025 11:00 AM EDT Office Visit [facility] [address] [place] [address] Makayla York NP Chronic daily headache (Primary [...] complete this topic Procedures * Due to [place] Ad[employer] law, this organization might not be sharing negative HIV tests. Procedure Name Priority Date/Time Associated Diagnosis Comments MRI ANGIOGRAM HEAD WO CONTRAST Routine 07/21/2025 2:50 PM EDT Chronic daily headache from Last 3 Months Results * Due to [place] [employer] law, this organization might not be sharing negative HIV tests. * MRI angiogram head without contrast (07/21/2025 2:50 PM EDT) Anatomical Region Laterality Modality Head and Neck Magnetic Resonan ce 07/21/2025 2:30 PM EDT Narrative 07/21/2025 9:28 PM EDT Strong MRI at [facility], [facility] Accession Number: [id number] Patient Name: Abbie Clayton Date of : 1965 Date of Exam: 07-21-2025 Referring Physician: Makayla York [address] [address] Exam: MR Brain Angio (C-) CPT 27326 Room Description: Wing GE Mob 1.5 MRA of the brain HISTORY: Headaches and left earache. COMPARISON: MRI of the brain, 11/22/2024. FINDINGS: Axial noncontrast 3-D jvjf-ta-jvauut MR angiogram of the brain was performed [...] - 07/21/2025 [facility] Accession Number: [id number] Patient Name: Abbie Clayton Date of : 1965 Date of Exam: 07-21-2025 Referring Physician: Wyatt Dickey [place] [address] Exam: MR Brain Angio (C-) CPT 62857 Room Description: Rexford Biscotti Mob 1.5 MRA of the brain HISTORY: Headaches and left earache. COMPARISON: MRI of the brain, 11/22/2024. FINDINGS: Axial noncontrast 3-D tcds-fy-vxprye MR angiogram of the brain was performed [...] Ade Gusman MD us Elisedavi Wyatt Dickey [facility] IMG MRI PROCEDURES Shannon l Result from Last [address] [id number] [facility] Care Teams Policy Writer Sales Relationship Specialty Start Date End Date Ashleigh Fajardo MD [address] [place] [phone] PCP - General Internal Medicine 04/24/25
--- OUTSIDE RECORDS SUMMARY | 2025-09-29 20:33 | XMS_ITS | Data Portability ---
Author Organization [place] - [facility], Allergy Address [address] [address] Care Team Providers Care Data Entry Supervisor Name Role Phone RENITA MAGALLON Primary Care Provider CARSON BENITO Referring Provider [phone] CARSON BENITO Referring Provider FRAN OVIEDO Primary Care Provider Assessment Encounter Date Assessment Date Assessment LastModified [...] INTERNAL AUDITORY CANAL, W/WO CONTRAST 2023 024 [facility] ([facility]), [address] [facility], [place], [address], 13:42:23 Medication Orders None recorded. Patient TargetsNo [...] Sensorineur al hearing loss of bilateral ears [id number] Active 2023 CECE NETTLES , AUD 100 [facility] [place], [facility] [place], [address], [facility] - [facility] 09:29:45 Tinnitus of left ear [id number] Active 2023 Dane Ross, DO 100 [facility] [place], [facility] [place], [address], [facility] 10:30:26 Otalgia of left ear 8034416335 Active 2023 Dane Ross, DO 100 [facility] [place],[address], [facility] [place], [address], [facility] 08:47:18 Temporomand ibular joint-pain- dysfunction syndrome 355124627 Active 2024 Dane Ross, DO 100 [facility] [place],[address] [facility], [facility] [place], [address], [facility] 10:30:31 Problem Notes None recorded. Procedures Surgical History Date Name Laterality Status Provider Name and Address Organization Details Recorded Time 08/30/2025 Air & Speech Audio with Tymps - 59656, 37491 & 20831 completed CECE NETTLES, AUD 100 [facility],[address], [address], [facility] 08/30/2025 09:29:03 11/15/2024 Comp Audio with Tymps - 90467 & 01616 completed MONIQUE ZAVALA, AUD 100 [facility],[address], [address], [facility] 11/15/2024 13:11:01 Imaging Results None recorded. [...] Updated DateTime 08/30/2025 165.1 cm 22 kg/m2 41478.19 g 120/82 mm[Hg] Gaby Suárez [place] - [facility] 08/30/2025 09:54:08 Social History None recorded. Functional Status None recorded. Mental Status None recorded. Family History Nothing Reported. Medical History No medical history recorded. Gynecological HistoryNo gynecological history recorded. Obstetrics History GPAL:G 0 P 0 0 0 0 Past Encounters Encounter ID Performer Location Encounter Start Date Encounter Closed Date Diagnosis/Indication Diagnosis SNOMED-CT Code Diagnosis ICD10 Code Diagnosis IMO Codes Diagnosis Note [id number] MERRILL MCCALL PA-C [facility] [address] [address] 11/15/2024 12:36:33 11/15/2024 13:49:24 Sensorineural hearing loss of bilateral ears 720184804 H90.3 Tinnitus of left ear 074 3263164 106 H93.12 Right Ear:Normal hearing through 3K Hz sloping to a moderate SNHL with excellent speech discrimina tion.Type A tympanogra m.Left Ear:Mild to moderate SNHL with excellent speech discrimina tion.Type A tympanogra m. Otalgia of left ear 1010 079871 H92.02 [id number] Dane Ross DO [facility] [address] [address] 08/30/2025 08:51:56 08/30/2025 10:28:54 Sensorineural hearing loss of bilateral ears 909659162 H90.3 Audiologic al evaluation results: Right ear: Normal sloping to moderately severe sensorineu ral hearing loss with excellent word recognitio n. Left ear: Normal sloping to severe sensorineu ral hearing loss with excellent word recognitio n. Tympanomet ry: Right Ear:Type A Left Ear:Type A Tinnitus of left ear 362 4269104 106 H93.12 Right Ear:Normal hearing through 3K [...] for this Otalgia of left ear 1010 313381 H92.02 Temporoman dibular zstsq-snty-maimokbzmi n syndrome 475645366 M26.629 7913 The patient's periauricu lar pressure [...] Bruner Member ID Guarantor Name 08/27/2025 1 [facility] [id number] Abbie Clayton [id number] Abbie Clayton Notes Date Note Type Note [...] nausea and associated imbalance. DANE VORA MD [address] [place] [address], [address], [facility] - [facility] 11/15/2024 17:28:49 08/30/2025 text/html ROS as [...] of atypical migraine. Dane Ross, DO 100 [facility],[place] [address], [place], [address], [facility] - [facility] 08/30/2025 10:31:11 OBGyn Episode No OBEpisode recorded.
--- OUTSIDE RECORDS SUMMARY | 2025-09-29 20:33 | XMS_ITS | Continuity of Care Document ---
Author Organization [place] - [facility], [facility] Address [address] [place] [address] Care Team Providers Care Fruit Farmworker Name Role Phone RENITA MAGALLON Primary Care Provider CARSON BENITO Referring Provider CARSON BENITO Referring Provider FRAN OVIEDO Primary [...] Sensorineur al hearing loss of bilateral ears [id number] Active 2023 CECE NETTLES , AUD 100 [facility], [place], [address], [facility] - [facility] 09:29:45 Tinnitus of left ear [id number] Active 2023 Dane Ross, DO 100 [facility],[address] [facility], [place], [address], [facility] 10:30:26 Otalgia of left ear 3512951524 Active 2023 Dane Ross, DO 100 [facility],[address] [facility], [place], [address], [facility] 08:47:18 Temporomand ibular joint-pain- dysfunction syndrome 886327598 Active 2024 Dane Ross DO 100 [facility],[address] [facility], [place], [address], [facility] 10:30:31 Problem Notes None recorded. Procedures Surgical History Date Name Laterality Status Provider Name and Address Organization Details Recorded Time 08/30/2025 Air & Speech Audio with Tymps - 85876, 01012 & 75735 completed CECE NETTLES, AUD 100 [facility],[place] [address], [place], [address], [facility] - [facility] 08/30/2025 09:29:03 11/15/2024 Comp Audio with Tymps - 75191 & 30623 completed MONIQUE ZAVALA, AUD 100 [facility],[place] [address], [place], [address], [facility] 11/15/2024 13:11:01 Imaging Results None recorded. [...] Updated DateTime 08/30/2025 165.1 cm 22 kg/m2 43639.19 g 120/82 mm[Hg] Gaby Sáurez [place] - [facility] 08/30/2025 09:54:08 Social History None recorded. Functional Status None recorded. Mental Status None recorded. Family History Nothing Reported. Medical History No medical history recorded. Gynecological HistoryNo gynecological history recorded. Obstetrics History GPAL:G 0 P 0 0 0 0 Past Encounters Encounter ID Performer Location Encounter Start Date Encounter Closed Date Diagnosis/Indication Diagnosis SNOMED-CT Code Diagnosis ICD10 Code Diagnosis IMO Codes Diagnosis Note [id number] Dane Ross DO [facility] 100 [place] [address] 08/30/2025 08:51:56 08/30/2025 10:28:54 Sensorineural hearing loss of bilateral ears 030189139 H90.3 Audiologic al evaluation results: Right ear: Normal sloping to moderately severe sensorineu ral hearing loss with excellent word recognitio n. Left ear: Normal sloping to severe sensorineu ral hearing loss with excellent word recognitio n. Tympanomet ry: Right Ear:Type A Left Ear:Type A Tinnitus of left ear 645 8389450 106 H93.12 Right Ear:Normal hearing through 3K [...] for this Otalgia of left ear 1010 035597 H92.02 Temporoman dibular xwdbj-lsrf-cpqdjsncia n syndrome 307412166 M26.149 7937 The patient's periauricu lar pressure sensation is [...] Bruner Member ID Guarantor Name 08/30/2025 1 [employer] [facility] [place] [id number] Abbie Vargas Forrest [id number] Abbie Vargas Forrest Notes Date Note Type [...] form of atypical migraine. Dane Ross, 100 [facility],[place] [address], [place], [address], [facility] - [facility] 08/30/2025 10:31:11 OBGyn Episode No OBEpisode recorded.
== END 2025-09-29 14:40 | disposition home or self-care (01) ==
LOC: HO.HSM 13:56
PROVIDERS: PCP Internal Medicine; Visit Provider Nurse Practitioner
DX: F45.8 Other somatoform disorders (principal); M26.609 Unspecified temporomandibular joint disorder, unspecified side; M54.2 Cervicalgia; G43.709 Chronic migraine without aura, not intractable, without status migrainosus
CPT/HCPCS: 20553; 64405; 99214

== ENCOUNTER → 2025-09-29 14:50 | Outpatient (BNV) | payer OTHER, SELFPAY | PROVIDERS: PCP Internal Medicine; Visit Provider Radiology Diagnostic Radiology | DX: M54.2 Cervicalgia (principal) | CPT/HCPCS: 72040 ==

== ENCOUNTER 2025-10-24 12:55 | Outpatient (AMB) | payer OTHER, SELFPAY ==
--- NOTE | 2025-10-24 13:17 | MHC.OFFVIS ---
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 To review: Her headaches have historically been predominantly left-sided to the temporal areas associated with postauricular pain and hearing loss to the left ear. She has associated light and sound sensitivity as well as nausea. Headaches are throbbing and pulsating. She does have a history of TMJ which I have long suspected place her role in tension buildup especially to the left side of her head and face. We initially trialed Botox therapy however she had developed some weakness of the cervical muscles and opted to stop treatment. We subsequently trailed occipital nerve blocks, left auriculotemporal nerve block, and trigger point injections which did provide some short-term benefit. We also trialed Emgality. Unfortunately she has not had any profound improvement on Emgality. She is still currently experiencing daily migraine type headaches with severe pain to the left side of her head especially to the temporal area and associated sensation of left ear fullness and decreased hearing on that side. She continues with light and sound sensitivity as well as nausea. Headaches are relatively consistent though she does have some improvement with muscle relaxers and magnesium as well as heat compresses. I did perform occipital nerve blocks, a left auriculotamporal nerve blocks and left temporal trigger point injections about 1 month ago which gave her some partial relief. [facility] Medical History (Updated 09/29/25 @ 14:37 by Keyona Galeano CNP) Hypertriglyceridemia MDD (major depressive disorder) Insomnia YUNIEL (generalized anxiety disorder) Depression Low back pain Bruxism Migraine Family History (Updated 09/01/25 @ 10:11 by Ambrose Allred CMA) Father Diabetes mellitus Hypertension Review of Systems Const All systems reviewed & are unremarkable except as noted in HPI and below Physical Exam Vital Signs: Last Vital Signs Pulse 104 H 10/24/25 13:36 Resp 16 10/24/25 13:36 BP 118/76 10/24/25 13:36 Pulse Ox 98 10/24/25 13:36 Oxygen Delivery Method Room Air 10/24/25 13:36 BMI result Body Mass Index 22.3 Const General: cooperative, healthy appearing, comfortable and no acute distress Nutritional Appearance: well nourished Orientation/consciousness: patient oriented x3 Limitations: no limitations HEENT Head: Yes normal to inspection and Yes normocephalic Eyes General: appearance normal, both eyes and all related structures Visual Ferrell: normal visual ferrell by confrontation Alignment and Position: alignment normal Periorbital: periorbital findings normal Eyelids: Yes eyelids normal Conjunctivae: conjunctivae normal Sclerae: sclerae normal Neck Neck: Yes normal visual inspection and Yes full ROM General: Yes no CVA tenderness Back/Spine/Pelvis Back: no CVA tenderness Cervical Spine: normal cervical lordosis Thoracic/Lumbar Spine: thoracic and lumbar spine normal to inspection Neuro General: patient oriented x3 and deep tendon reflexes 2+ bilaterally Cranial nerves: Yes CN's II-XII intact bilaterally and Yes Facial sensation intact/muscles of mastication intact Cognition (Neuro): normal cognition Gait exam (Neuro): Normal gait present Motor exam (neuro): 5/5 motor strength present throughout and no tremor noted Sensory Exam: double simultaneous stimulation for sensation normal Romberg Test: Negative Pupils: Normal pupillary reactivity/response: bilateral Psych Appearance: grossly normal Mental Status: mental status grossly normal Speech and movement: Normal speech and movement present and Clear speech present Affect: normal affect Attitude: cooperative Thought process: Normal thought process present Thought content: Normal thought content present Insight: Good insight present (Psych) Judgement: Good judgement present (Psych) Office Procedures Botulinum toxin Injection Details: Procedure: Botox therapy for Chronic Migraine Laterally: Bilateral Indications: Chronic Migraine Medications: Botox 155units How the med was supplied: Patient supplied Timeout performed before procedure, patient identified with full name and date of . Risks and benefits of procedure reviewed, as well as site verified, sonsent signed, allergies reviewed, and medication reconsilliatino reviewed/completed. Following universal hygiene protocol and PREEMPT protocol, Botox 200unit vial was reconstituted with 4cc normal saline for a final concentration of 5units/0.1cc. The areas of injection were cleansed with alcohol. A 30g 0.5 needle was used to administer the injections as below. Procerus: 5units midline Script Artist: 5units left and 5units right Frontalis: 10units left and 10units right Temporalis: 20units left and 20units right Occipitalis:15units left and 15units right No noted paresthesias during injection 155units of Botox used and 45units wasted per PREEMPT protocol Complications: None Patient was observed for 15 minutes after the procedure and discharged home with instructions to apply ice to their head as needed. [address]7410 - Migraine Procedure code (CPT) selection complete Office Meds onabotulinumtoxinA 200 unit solution for injection Performing Provider: Keyona Galeano CNP Performing Location: [facility] [place] [facility] Administered by: Keyona Galeano CNP on 10/24/25 13:17 Dose Route Admin Location Dispensed Lot Number Expiration Date [facility] Nuclear Radiologist 105 unit IM 200 units [id number] 05/15/27 8172-2179-07 [employer]OTOX Total Dispensed Waste 200 units 47.5 % Assessment & Plan Assessment & Plan (1) Neck pain: Code(s): M54.2 - Cervicalgia Category: Medical (2) Bruxism: Code(s): F45.8 - Other somatoform disorders Category: Medical (3) Chronic migraine without aura without status migrainosus, not intractable: Code(s): G43.709 - Chronic migraine without aura, not intractable, without status migrainosus Category: Medical (4) TMJ (temporomandibular joint disorder): Code(s): M26.609 - Unspecified temporomandibular joint disorder, unspecified side Category: Medical Plan Abbie is a 60-year-old female patient with a past medical history of chronic back pain, constipation, depression, anxiety, bulimia, hyperlipidemia, and insomnia who is presenting today for Botox therapy. Her procedure went well without complications. Technique was modified slightly based on prior reaction of neck pain likely r/t weakness of the paraspinal muscles. We avoided the cervical paraspinal and trapezius muscles today as documented. - Botox therapy performed - Follow-up in 3 months for repeat Botox and in 1 month for repeat nerve block and trigger point injections - Contine baclofen 5mg BID for now (might consider switching back to tizanidine at next visit). Orders: Orders AMB Botulinum toxin Injection - Patient Supplied N/C 10/24/25 F45.8 - Other somatoform disorders, G43.709 - Chronic migraine without aura, not intractable, without status migrainosus Coding Level of Care Code Est Pt Level 1 (77453) Diagnoses Neck pain M54.2 Bruxism F45.8 Chronic migraine without aura without status migrainosus, not intractable G43.709 TMJ (temporomandibular joint disorder) M26.609 CPT Codes Botox Injection - Botox 3: 08503 - Migraine ([id number])
[2025-10-24 13:36] VITALS: BP 118/76; PULSE 104; RESP 16; O2SAT 98; BMI 22.3
== END 2025-10-24 13:43 | disposition home or self-care (01) ==
LOC: HO.HSM 12:56
PROVIDERS: PCP Internal Medicine; Visit Provider Nurse Practitioner
DX: G43.709 Chronic migraine without aura, not intractable, without status migrainosus (principal); F45.8 Other somatoform disorders
CPT/HCPCS: 64615

== ENCOUNTER → 2025-10-24 12:55 | Outpatient (BNVA) | payer OTHER, SELFPAY | PROVIDERS: PCP Internal Medicine; Visit Provider Nurse Practitioner | DX: G43.709 Chronic migraine without aura, not intractable, without status migrainosus (principal); M26.609 Unspecified temporomandibular joint disorder, unspecified side; F45.8 Other somatoform disorders; M54.2 Cervicalgia | CPT/HCPCS: 64615; J0585 ==